=== PATIENT | female | born 1995 ===

== ENCOUNTER 2020-11-10 00:12 | Emergency (ER) | payer OTHER ==
[2020-11-10 00:46] VITALS: BP 110/66
--- NOTE | 2020-11-10 01:11 | XRay Report ---
Cervical spine 3 views Indication: Trauma Findings: There is no fracture, subluxation, or other acute radiographic abnormality of the cervical spine. Signer Name: Esteban Willoughby MD Signed: 11/10/2020 1:07 AM Workstation Name: [id number]
[2020-11-10] MEDS ORDERED: ONDANSETRON 4 MG ODT TAB PO STA (03:21)
[2020-11-10] MEDS ORDERED: IBUPROFEN 800 MG TAB PO ONE (03:21)
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
== END 2020-11-10 03:25 | disposition home or self-care (01) ==
LOC: ED 00:12
DX: R51.9 Headache, unspecified (principal); M79.18 Myalgia, other site; V87.7XXA Person injured in collision between other specified motor vehicles (traffic), initial encounter; Y93.89 Activity, other specified; Y92.488 Other paved roadways as the place of occurrence of the external cause; Y99.8 Other external cause status
CPT/HCPCS: 72040; 99283

== ENCOUNTER 2021-01-22 14:48 | Emergency (ER) | payer SELFPAY ==
[2021-01-22] MEDS ORDERED: ACETAMINOPHEN 325 MG TAB PO ONE (16:37)
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
[2021-01-22 17:33] LABS: Bacteria,Urine 1+ /HPF (Negative); Bilirubin,Urine NEG (Negative); Blood,Urine NEG (Negative); Color,Urine Yellow (Yellow); Mucus,Urine 1+ /HPF; Protein,Urine <15 mg/dL mg/dL (Negative)
[2021-01-22 18:13] LABS: HCG Qualitative,Urine Negative (Negative)
[2021-01-22 18:25] VITALS: BP 110/74
== END 2021-01-22 18:41 | disposition home or self-care (01) ==
LOC: ED 14:48
DX: N76.0 Acute vaginitis (principal); B96.89 Other specified bacterial agents as the cause of diseases classified elsewhere; B99.8 Other infectious disease; Z98.890 Other specified postprocedural states; Z91.010 Allergy to peanuts; Z79.899 Other long term (current) drug therapy
CPT/HCPCS: 81001; 81025; 87086; 87210; 99284